=== PATIENT | female | born 1995 | race Two or more races ===

== ENCOUNTER 2024-09-13 15:59 | Outpatient (AMBR) | payer MEDICAID, SELFPAY ==
--- NOTE | 2024-09-13 16:42 | LAC.VISIT ---
Assessment LAC OP History History Hx of Breast Surgery: No Hx of Breast Feeding Problems: No Alternative Milk Expression Alternative Milk Expression Alternative Method Used: Yes Method Used: Pumping Alternative Method Comment: Mom had to do pumping right after delivery as she had much difficulty in keeping baby latched and it was hindering her milk supply. Mom stated she pumped exclusively until her milk supply was established and baby was older. Alternative Method Used Reason: Stimulation, Poor Feeding and Sore Nipples LAC Assessment Breast Feeding Assessment Date of : [birth year] Current Age of baby: 6 (months) Current weight of baby: 7974.154 g [place] Lip Seal: Clicking and Tight Lips Breast Feeding Comment: mom states that she hears clicking when baby is at the breast, baby also comes off the breast with a blister on the middle top lip. states that he can not flange his top lip when at the breast. when she tries to flip the lip it is very tight and hard for her to flip up. LAC Intervention Discharge Follow Up Appointment Date and Time: follow up after consultation for lip/tongue tie Other Referral Made: Yes Feeding Preference at Discharge: Exclusive LAC Latch Score LATCH Score Latch: Repeat Attempt to Hold Nipple Audible Swallow: Spontaneous, Intermittent, Frequent Nipple Type: Everted After Stimulation Comfort: Soft, Nontender Hold: No Assistance Needed Total Score: 9 LAC Education Education : Education Topics: Signs of Adequate Intake Education Topic Comment: maintaining milk supply if baby is not emptying breast completely at a feed. Mom also states that baby is very gassy, burps a lot. Explained air transfer when lip tie occurs. Mom understood Teaching Methods: Verbal instruction Resource Information Given: [facility] [place] [facility] Referral OP DC Assessment Discharge Follow Up Appointment Date and Time: follow up after consultation for lip/tongue tie Other Referral Made: Yes Visit Complete?: Yes
== END 2024-09-22 23:59 | disposition home or self-care (01) ==
LOC: HODLAC 15:59
DX: Z39.1 Encounter for care and examination of lactating mother (principal)